=== PATIENT | female | born 1940 ===

== ENCOUNTER 2016-10-24 13:00 | Outpatient (RCR) | payer MEDICARE, OTHER | END 2016-11-19 | disposition home or self-care (01) | LOC: PTY 13:00 | DX: M25.561 Pain in right knee (principal); M25.562 Pain in left knee; G89.29 Other chronic pain; M25.512 Pain in left shoulder; M25.511 Pain in right shoulder; Z85.528 Personal history of other malignant neoplasm of kidney; Z85.3 Personal history of malignant neoplasm of breast | CPT/HCPCS: 97110; 97140; 97161; G0283; G8979; G8984 ==

== ENCOUNTER 2016-11-24 14:18 | Outpatient (RCR) | payer MEDICARE, OTHER | END 2016-12-19 | disposition home or self-care (01) | LOC: PTY 14:18 | DX: M25.562 Pain in left knee (principal); M25.561 Pain in right knee; G89.29 Other chronic pain; M25.512 Pain in left shoulder; M25.511 Pain in right shoulder; Z85.528 Personal history of other malignant neoplasm of kidney; Z85.3 Personal history of malignant neoplasm of breast | CPT/HCPCS: 97110; 97140; G8985; G8986 ==